=== PATIENT | female | born 1955 | race Caucasian/White ===

== ENCOUNTER → 2019-02-16 | Outpatient (CLI) | payer OTHER ==
[2019-02-16 12:27] LABS: ABSOLUTE EOSINOPHILS # (AUTO) 0.2 10^3/uL (0.0-0.6); ABSOLUTE LYMPHOCYTES (AUTO) 1.7 10^3/uL (0.5-4.7); ABSOLUTE MONOCYTES (AUTO) 0.5 10^3/uL (0.1-1.4); ABSOLUTE NEUT (AUTO) 3.1 10^3/uL (1.7-8.2); BASOPHILS % (AUTO) 0.6 % (0-2); EOSINOPHILS % (AUTO) 3.2 % (0-6); HEMATOCRIT 33.6 % (36.0-47.0); HEMOGLOBIN 11.2 g/dL (12.0-15.5); MEAN CORPUSCULAR HGB CONC 33.2 g/dL (32.0-36.0); MEAN CORPUSCULAR VOLUME 88 fl (80-97); MONOCYTES % (AUTO) 9.2 % (3-13); PLATELET COUNT 229 10^3/uL (150-450); RED BLOOD COUNT 3.84 10^6/uL (3.72-5.28); RED CELL DISTRIBUTION WIDTH 13.5 % (11.5-14.0); TOTAL CELLS COUNTED % (AUTO) 100 %; WHITE BLOOD COUNT 5.6 10^3/uL (4.0-10.5)
[2019-02-16 12:35] LABS: APPEARANCE,URINE CLEAR; BILIRUBIN,URINE NEGATIVE (NEGATIVE); COLOR,URINE STRAW; GLUCOSE, URINE NEGATIVE (NEGATIVE); KETONES,URINE NEGATIVE (NEGATIVE); LEUKOCYTE ESTERASE,URINE NEGATIVE (NEGATIVE); NITRITE,URINE NEGATIVE (NEGATIVE); PROTEIN,URINE NEGATIVE (NEGATIVE); URINE SPECIFIC GRAVITY 1.009; UROBILINOGEN,URINE NEGATIVE mg/dL (<2.0)
--- NOTE | 2019-02-16 12:39 | RADIOLOGY REPORT (SQ) ---
EXAM DESCRIPTION: CHEST PA/LATERAL COMPLETED DATE/TIME: 02/16/2019 12:32 pm REASON FOR STUDY: PREOP COMPARISON: None. EXAM PARAMETERS: NUMBER OF VIEWS: two views TECHNIQUE: Digital Frontal and Lateral radiographic views of the chest acquired. RADIATION DOSE: NA LIMITATIONS: none FINDINGS: LUNGS AND PLEURA: No opacities, masses or pneumothorax. No pleural effusion. MEDIASTINUM AND HILAR STRUCTURES: No masses or contour abnormalities. HEART AND VASCULAR STRUCTURES: Heart normal size. No evidence for failure. BONES: No acute findings. HARDWARE: None in the chest. OTHER: No other significant finding. IMPRESSION: NO SIGNIFICANT RADIOGRAPHIC FINDING IN THE CHEST. TECHNICAL DOCUMENTATION: JOB ID: [id number] [employer]- All Rights Reserved Reading location - IP/workstation name: [email or web address]
[2019-02-16 12:49] LABS: ANION GAP 8 (5-19); BLOOD UREA NITROGEN 29 mg/dL (7-20); CALCIUM 9.2 mg/dL (8.4-10.2); CARBON DIOXIDE 28 mmol/L (22-30); CHLORIDE 102 mmol/L (98-107); GLUCOSE 143 mg/dL (75-110); POTASSIUM 4.9 mmol/L (3.6-5.0)
--- NOTE | 2019-02-17 09:33 | EKG REPORT ---
SEVERITY:- NORMAL ECG - SINUS RHYTHM : Confirmed by: Kim Cartagena MD 16-Feb-2019 21:27:00
== END ==
LOC: OD 11:25
PROVIDERS: ATTEND Orthopaedic Surgery
DX: Z01.810 Encounter for preprocedural cardiovascular examination (principal); Z01.811 Encounter for preprocedural respiratory examination; Z01.812 Encounter for preprocedural laboratory examination; M17.12 Unilateral primary osteoarthritis, left knee
CPT/HCPCS: 36415; 71046; 80048; 81001; 85025; 93005; 93010

== ENCOUNTER 2019-03-09 05:26 | Inpatient (IN) | payer OTHER ==
[~2019-03-09 05:26] MED LIST: BUPIVACAINE INJ/PF LIPOSOME/PF 266 MG/20 ML SDV INJ PRN; CEFAZOLIN INJ 1 GM VIAL IV PRN; CEFAZOLIN INJ 1 GM VIAL ONE; IBUPROFEN 800 MG in NORMAL SALINE 250 ML IV PRN; LACTATED RINGERS 1000 ML IV PRN; LIDOCAINE 0.5% INJ-PF (5 MG/ML) 50 ML SDV SUBCUT PRN; OXYCODONE HCL SR 10 MG TABLET PO ONE; OXYCODONE HCL SR 10 MG TABLET PO PRN; PANTOPRAZOLE SODIUM 20 MG TABLET.DR PO ONE; PANTOPRAZOLE SODIUM 20 MG TABLET.DR PO PRN; VANCOMYCIN HCL 1,000 MG in DEXTROSE 5%-WATER 250 ML IV PRN
[2019-03-09] MEDS ORDERED: PANTOPRAZOLE SODIUM 20 MG TABLET.DR PO ONE (06:10)
[2019-03-09] MEDS ORDERED: FENTANYL CITRATE INJ/PF 100 MCG/2 ML AMPUL ONE (06:31)
[2019-03-09] MEDS ORDERED: LIDOCAINE 2% INJ (20 MG/ML) 20 ML MDV ONE (06:32)
[2019-03-09] MEDS ORDERED: MIDAZOLAM 2 MG/2 ML INJ ONE (06:32)
[2019-03-09] MEDS ORDERED: PROPOFOL INJ 200 MG/20 ML VIAL IV ONE (06:32)
[2019-03-09] MEDS ORDERED: PROMETHAZINE HCL INJ 25 MG/1 ML VIAL IV PRN ×2 (06:46)
[2019-03-09] MEDS ORDERED: MEPERIDINE HCL/PF INJ 25 MG/1 ML DISP.SYRIN IV PRN (06:46)
[2019-03-09] MEDS ORDERED: FENTANYL CITRATE INJ/PF 100 MCG/2 ML AMPUL IV PRN ×3 (06:46)
[2019-03-09] MEDS ORDERED: DIPHENHYDRAMINE HCL 50 MG/ML VIAL IV PRN ×2 (06:46→08:30)
[2019-03-09] MEDS ORDERED: OXYCODONE-ACETAMINOPHEN 5-325 MG TABLET PO PRN ×2 (06:46)
[2019-03-09] MEDS ORDERED: MORPHINE SULFATE 10 MG/ML INJ IV PRN (06:46)
[2019-03-09] MEDS ORDERED: BUPIVACAINE HCL 0.25% /EPINEPHRINE INJ/PF 30 ML SDV ONE (06:58)
[2019-03-09] MEDS ORDERED: TRANEXAMIC ACID INJ/PF 1,000 MG/10 ML SDV IV ONE ×3 (07:12→10:00)
--- NOTE | 2019-03-09 08:29 | Operative Report ---
Operative Report DATE OF SURGERY: 03/09/19 PREOPERATIVE DIAGNOSIS: Left knee arthritis OPERATION: Left knee arthroplasty SURGEON: JANELL JOSHI ANESTHESIA: Spinal TISSUE REMOVED OR ALTERED: Bone to pathology ESTIMATED BLOOD LOSS: 75 PROCEDURE: Implants used: Femur: Mindi triathlon size 5 CR uncemented femur Tibia: 5 uncemented tibia Tibial liner: 11 mm CS insert Patella: 35 mm uncemented patella Procedure with the patient supine on the operating table the left the limb is prepped and draped in a sterile fashion. The limb was elevated for exsanguination and the tourniquet inflated to 280 torr. A standard midline median parapatellar approach the knee is taken. Access is gained to the femoral canal through the intercondylar notch. Intramedullary alignment instrumentation used to resect 10 mm of distal femur in 5 of valgus. Sizing guide indicated a size 5 femur. Appropriate cutting jig is then used to fashion anterior posterior and chamfer cuts. A trial reduction femurs performed and this is judged to be adequate. Attention was next turned to the tibia. Using an extra medullary alignment system 9 millimeters was resected off the lateral tibial plateau. This is sized to a size 5 tibia. A trial reduction was now performed with a 5 femur and a 5 tibia using a 11 millimeters spacer. It is full extension and central patellofemoral tracking. The articular surface the patella was next resected using an oscillating saw. All trial implants were removed. The above implants are impacted into place. The tourniquet was deflated hemostasis obtained the wound is then closed in layers using interrupted Vicryl followed by jessica. A sterile compressive dressing was applied and the patient returned to recovery room in satisfactory condition.
[2019-03-09] MEDS ORDERED: ZOLPIDEM TARTRATE 5 MG TABLET PO PRN (08:30)
[2019-03-09] MEDS ORDERED: ONDANSETRON 4 MG TAB.RAPDIS PO PRN (08:30)
[2019-03-09] MEDS ORDERED: RINGERS SOLUTION,LACTATED 1,000 ML IV PRN (08:30)
[2019-03-09] MEDS ORDERED: MAG HYDROX/AL HYDROX/SIMETH SUSP 30 ML UDCUP PO PRN (08:30)
[2019-03-09] MEDS ORDERED: ONDANSETRON HCL INJ/PF 4 MG/2 ML SDV IV PRN (08:30)
--- NOTE | 2019-03-09 09:21 | RADIOLOGY REPORT (SQ) ---
EXAM DESCRIPTION: KNEE LEFT 2 VIEWS COMPLETED DATE/TIME: 03/09/2019 9:14 am REASON FOR STUDY: Post OP -Long Cassette in PACU M17.12 UNILATERAL PRIMARY OSTEOARTHRITIS, LEFT KNE E COMPARISON: None. NUMBER OF VIEWS: Two view(s). TECHNIQUE: Digital radiographic images of the left knee post-procedure. LIMITATIONS: None. FINDINGS: BONES: No worrisome or unexpected findings post-procedure. DEVICE: Total knee arthroplasty. SOFT TISSUES: No worrisome findings. Expected postoperative soft tissue changes. IMPRESSION: SATISFACTORY POSTOPERATIVE LEFT KNEE. TECHNICAL DOCUMENTATION: JOB ID: [id number] [employer]- All Rights Reserved Reading location - IP/workstation name: [email or web address]
[2019-03-09] MEDS ORDERED: GLUCAGON,HUMAN RECOMB 1 MG INJ IM PRN (09:30)
[2019-03-09] MEDS ORDERED: DEXTROSE 50%-WATER SYRINGE 12.5 GM/25 ML DOSE IV PRN (09:30)
[2019-03-09] MEDS ORDERED: DEXTROSE 50%-WATER SYRINGE 25 GM/50 ML DOSE IV PRN (09:30)
[2019-03-09] MEDS ORDERED: DEXTROSE 40% GEL 15 GM TUBE X 2 PO PRN (09:30)
[2019-03-09] MEDS ORDERED: DEXTROSE 40% GEL 15 GM TUBE PO PRN (09:30)
[2019-03-09] MEDS ORDERED: (PENDING PHARMACY ID) (Magnesium Oxide [Magnesium] 400 MG) PO SCH (10:00)
[2019-03-09] MEDS ORDERED: (PENDING PHARMACY ID) (Rabeprazole Sodium [Rabeprazole Sodium] 20 MG) PO SCH (10:00)
[2019-03-09] MEDS ORDERED: (PENDING PHARMACY ID) (Buspirone Hcl [Buspirone Hcl] 15 MG) PO SCH (10:00)
[2019-03-09] MEDS ORDERED: [UNRECOGNIZED DRUG - OTHER] PO SCH (10:00)
[2019-03-09] MEDS: OXYCODONE HCL IR 5 MG TABLET PO PRN ×2 (11:56→17:58)
[2019-03-09] MEDS ORDERED: OXYCODONE HCL IR 5 MG TABLET ONE (12:00)
[2019-03-09] MEDS: INSULIN LISPRO 100 UNIT/ML 3 ML VIAL SUBCUT SCH ×3 (13:42→21:53)
[2019-03-09] MEDS: OXYCODONE HCL SR 10 MG TABLET PO SCH ×2 (15:07→21:59)
[2019-03-09] MEDS: PREGABALIN 75 MG CAPSULE PO SCH ×2 (15:07→21:58)
[2019-03-09] MEDS: CARVEDILOL 12.5 MG TABLET PO SCH ×2 (15:09→21:58)
[2019-03-09] MEDS: ASPIRIN 81 MG TABLET, CHEWABLE PO SCH (15:09)
[2019-03-09] MEDS: PRENATAL VITAMIN W DHA CAPSULE PO SCH (15:10)
[2019-03-09] MEDS: SENNOSIDES/DOCUSATE 8.6-50 MG 1 EACH TABLET PO SCH ×2 (15:11→17:10)
[2019-03-09] MEDS: METFORMIN HCL 500 MG TABLET PO SCH (17:08)
[2019-03-09] MEDS: BUSPIRONE HCL 10 MG TABLET PO SCH (17:08)
[2019-03-09] MEDS: IBUPROFEN 800 MG in NORMAL SALINE 250 ML IV SCH (17:10)
[2019-03-09] MEDS ORDERED: SIMVASTATIN 40 MG TABLET PO SCH (18:00)
[2019-03-09] MEDS ORDERED: VANCOMYCIN HCL 1,000 MG in DEXTROSE 5%-WATER 250 ML IV ONE (20:30)
[2019-03-09] MEDS ORDERED: ZOLPIDEM TARTRATE 5 MG TABLET PO SCH (22:00)
[2019-03-09] MEDS ORDERED: VENLAFAXINE HCL 75 MG CAP.SR.24H PO SCH (22:00)
[2019-03-09] MEDS ORDERED: VENLAFAXINE HCL 300 MG PO SCH (22:00)
[2019-03-09] MEDS ORDERED: (PENDING PHARMACY ID) (Zolpidem Tartrate [Ambien] 10 MG) PO SCH (22:00)
[2019-03-10] MEDS: ACETAMINOPHEN 325 MG TABLET PO PRN ×2 (02:16→08:44)
[2019-03-10] MEDS: OXYCODONE HCL IR 5 MG TABLET PO PRN ×2 (02:16→08:45)
[2019-03-10] MEDS: IBUPROFEN 800 MG in NORMAL SALINE 250 ML IV SCH ×2 (02:17→10:18)
[2019-03-10 04:57] LABS: HEMATOCRIT 28.5 % (36.0-47.0); HEMOGLOBIN 9.6 g/dL (12.0-15.5); MEAN CORPUSCULAR HEMOGLOBIN 29.2 pg (27.0-33.4); MEAN CORPUSCULAR HGB CONC 33.8 g/dL (32.0-36.0); MEAN CORPUSCULAR VOLUME 86 fl (80-97); PLATELET COUNT 182 10^3/uL (150-450); RED CELL DISTRIBUTION WIDTH 13.6 % (11.5-14.0); WHITE BLOOD COUNT 7.7 10^3/uL (4.0-10.5)
[2019-03-10 05:10] LABS: ANION GAP 9 (5-19); BLOOD UREA NITROGEN 29 mg/dL (7-20); CALCIUM 8.8 mg/dL (8.4-10.2); CARBON DIOXIDE 27 mmol/L (22-30); CHLORIDE 101 mmol/L (98-107); GLUCOSE 151 mg/dL (75-110); POTASSIUM 4.5 mmol/L (3.6-5.0)
[2019-03-10] MEDS ORDERED: LEVOTHYROXINE SODIUM 0.15 MG TABLET PO SCH (06:00)
[2019-03-10] MEDS ORDERED: PANTOPRAZOLE SODIUM 40 MG TABLET.DR PO SCH (06:00)
[2019-03-10] MEDS: METFORMIN HCL 500 MG TABLET PO SCH (07:46)
[2019-03-10] MEDS: INSULIN LISPRO 100 UNIT/ML 3 ML VIAL SUBCUT SCH ×2 (07:51→12:34)
[2019-03-10] MEDS ORDERED: MAGNESIUM OXIDE 400 MG TABLET PO SCH (10:00)
[2019-03-10] MEDS ORDERED: LOSARTAN POTASSIUM 50 MG TABLET PO SCH (10:00)
[2019-03-10] MEDS ORDERED: HYDROCHLOROTHIAZIDE 25 MG TABLET PO SCH (10:00)
[2019-03-10] MEDS: SENNOSIDES/DOCUSATE 8.6-50 MG 1 EACH TABLET PO SCH (10:16)
[2019-03-10] MEDS: OXYCODONE HCL SR 10 MG TABLET PO SCH (10:16)
[2019-03-10] MEDS: PREGABALIN 75 MG CAPSULE PO SCH (10:17)
[2019-03-10] MEDS: ASPIRIN 81 MG TABLET, CHEWABLE PO SCH (10:17)
[2019-03-10] MEDS: CARVEDILOL 12.5 MG TABLET PO SCH (10:17)
[2019-03-10] MEDS: BUSPIRONE HCL 10 MG TABLET PO SCH (10:17)
[2019-03-10] MEDS: PRENATAL VITAMIN W DHA CAPSULE PO SCH (10:18)
[2019-03-10 12:06] VITALS: BP 128/66
--- NOTE | 2019-03-12 06:17 | PDOC DISCHARGE SUMMARY ---
General - Admit/Disc Date/PCP Admission Date/Primary Care Provider: 03/09/19 05:26 MILTON CUEVAS Discharge Date: 03/10/19 - Discharge Diagnosis (1) Arthritis of left knee Is this a current diagnosis for this admission?: Yes - Additional Information Resuscitation Status: Full Code Discharge Diet: As Tolerated Discharge Activity: Activity As Tolerated, Balance Activity w/Rest, No Driving, No tub bath Home Medications: Aspirin [Aspirin 81 mg Chewable Tablet] 81 mg PO DAILY 02/22/19 Carvedilol [Coreg] 12.5 mg PO Q12 02/22/19 Levothyroxine Sodium [Synthroid 0.15 mg Tablet] 150 mcg PO Q6AM 02/22/19 Meloxicam [Mobic] 15 mg PO DAILY 02/22/19 Metformin HCl 1,000 mg PO BID 02/22/19 Pregabalin [Lyrica 75 mg Capsule] 75 mg PO BID 02/22/19 Simvastatin [Zocor 40 mg Tablet] 40 mg PO QPM 02/22/19 Zolpidem Tartrate [Ambien] 10 mg PO QHS 02/22/19 Buspirone HCl 15 mg PO BID 02/24/19 Calcium Carbonate/Vitamin D3 [Calcium 500-Vit D3 200 Caplet] 1 tab PO BID 02/24/19 Magnesium Oxide [Magnesium] 400 mg PO DAILY 02/24/19 Rabeprazole Sodium 20 mg PO BID 02/24/19 Telmisartan/Hydrochlorothiazid [Telmisartan-Hctz 80-25 mg Tab] 1 tab PO DAILY 02/24/19 Venlafaxine HCl [Effexor Xr] 300 mg PO QHS 02/24/19 History of Present Illness History of Present Illness: MAYANK PARIKH is a 63 year old female 63-year-old white female with progressive left knee pain and functional disability secondary osteoarthritis. Patient is admitted for elective left knee arthroplasty. Hospital Course Hospital Course: Patient is admitted through the operating where she undergoes unconjugated left knee arthroplasty. She is returned to floor in satisfactory condition. She makes excellent progress with physical therapy on the day of surgery. Passive dressing is removed on the first postoperative morning. Underlying OpSite is clean dry and intact. Physical Exam Vital Signs: Temp Pulse Resp BP Pulse Ox 36.7 C 104 H 18 126/75 H 92 03/10/19 11:04 03/10/19 11:04 03/10/19 11:04 03/10/19 11:04 03/10/19 11:04 Intake & Output 03/10/19 03/11/19 03/12/19 06:59 06:59 06:59 Intake Total 7340 250 Output Total 3100 Balance 4240 250 Weight 105.2 kg Physical Exam: Middle-aged white female in no acute distress. The patient is alert, oriented, appropriate. General appearance: PRESENT: no acute distress, well-developed, well-nourished Head exam: PRESENT: normocephalic Pulses: PRESENT: +1 pedal pulses bilateral Vascular exam: PRESENT: normal capillary refill GI/Abdominal exam: PRESENT: soft Rectal exam: PRESENT: deferred Extremities exam: PRESENT: other - Left knee OpSite dressing is clean dry and intact. The small amount of pedal edema. Distal neurovascular examination is intact. Neurological exam: PRESENT: alert, awake, oriented to person, oriented to place, oriented to time, oriented to situation. ABSENT: motor sensory deficit Skin exam: PRESENT: dry, intact, warm. ABSENT: cyanosis, rash Results Laboratory Results: 03/10/19 03:53 03/10/19 03:53 Impressions: Knee X-Ray 03/09/19 08:32 IMPRESSION: SATISFACTORY POSTOPERATIVE LEFT KNEE. Status: Imported from [facility] Qualifiers - * PATIENT BEING DISCHARGED WITH ANY OF THE FOLLOWING DIAGNOSIS: No VTE patient discharged on overlapping Therapy?: Yes Acute Heart Failure - Is this a Heart Failure Patient?: No Plan Discharge Plan: Patient be discharged home with home health services and DME. Follow-up with Dr. Alonso [facility] for surgery in 2 weeks for staple removal.
== END 2019-03-10 13:30 | disposition home health service (06) | DRG 470 ==
LOC: INOR 05:26 → 4S 13:48
PROVIDERS: ADMIT Orthopaedic Surgery; ATTEND Orthopaedic Surgery
PROC: 0SRD0JA Replacement of Left Knee Joint with Synthetic Substitute, Uncemented, Open Approach (ICD-10-PCS; principal; 2019-03-09 07:30)
DX: M17.12 Unilateral primary osteoarthritis, left knee (principal); F41.9 Anxiety disorder, unspecified; K21.9 Gastro-esophageal reflux disease without esophagitis; I10 Essential (primary) hypertension; M79.7 Fibromyalgia; E89.0 Postprocedural hypothyroidism; Z79.899 Other long term (current) drug therapy; Z79.82 Long term (current) use of aspirin; Z79.890 Hormone replacement therapy
CPT/HCPCS: 01402; 36415; 80048; 82962; 84132; 85027; 88311; 94799; C1713; C1776; J0690; J1741; J2250; J2704; J3010; J3370; J3490; J7050; J7060

== ENCOUNTER → 2019-05-03 | Outpatient (CLI) | payer OTHER | LOC: WI 10:43 | PROVIDERS: ATTEND Nurse Practitioner Family | DX: Z12.31 Encounter for screening mammogram for malignant neoplasm of breast (principal) | CPT/HCPCS: 77067 ==